=== PATIENT | female | born 1955 | race Two or more races ===

== ENCOUNTER 2018-12-31 18:50 | Emergency (ER) | payer MEDICAID ==
[~2018-12-31] VITALS: Ht 152.4 cm; Wt 77.1 kg
[~2018-12-31 18:50] MED LIST: LEVO25TA6 PO; LISI2.5T47 PO
[2018-12-31 19:23] VITALS: BP 159/92
== END 2019-01-01 02:08 | disposition home or self-care (01) ==
LOC: ER 18:50
DX: B37.2 Candidiasis of skin and nail (principal); Z79.899 Other long term (current) drug therapy